=== PATIENT | female | born 1960 | race Caucasian/White ===

== ENCOUNTER 2024-11-25 21:48 | Emergency (ER) | payer OTHER ==
[2024-11-25] MEDS: Acetaminophen/HYDROcodone 325-5 MG Tab PO ONE (23:09)
== END 2024-11-25 23:52 | disposition home or self-care (01) ==
LOC: JD.ED 21:48
DX: S82.831A Other fracture of upper and lower end of right fibula, initial encounter for closed fracture (principal); S82.391A Other fracture of lower end of right tibia, initial encounter for closed fracture; X50.1XXA Overexertion from prolonged static or awkward postures, initial encounter; Y93.89 Activity, other specified
CPT/HCPCS: 73610; 99283; A9270